=== PATIENT | male | born 1935 | race Caucasian/White ===

== ENCOUNTER 2022-01-03 13:45 | Observation (INO) ==
[2022-01-03] MEDS ORDERED: *HR* HYDROmorphone (PF) 1 MG/ML SYRINGE IVP ONE (18:07)
[2022-01-03] MEDS ORDERED: *HR* HYDROcodone/Acet 5/325 mg TABLET PO PRN (18:11)
[2022-01-03] MEDS ORDERED: Ondansetron 4 MG/2 ML VIAL IVP PRN (18:11)
[2022-01-03] MEDS ORDERED: Acetaminophen 325 MG TABLET PO PRN (18:11)
[2022-01-03] MEDS ORDERED: Naloxone 0.4 MG/ML INJ IVP PRN (18:11)
[2022-01-03] MEDS ORDERED: *HR* Dextrose 50 % in Water (Syg) 50 ML SYRINGE IVP PRN (18:14)
[2022-01-03] MEDS ORDERED: Dextrose Gel 15 GM/37.5 ML TUBE PO PRN ×2 (18:14)
[2022-01-03] MEDS ORDERED: D5% in Water 1,000 ML IVC PRN (18:14)
[2022-01-03 18:32] LABS: Hematocrit 40.4 % (37.5-50.1); Hemoglobin 13.9 g/dL (12.9-16.9); Mean Corpuscular HGB Conc 34.4 g/dL (31.6-35.5); Mean Corpuscular Hemoglobin 29.4 pg (28.0-33.3); Mean Corpuscular Volume 85.6 fL (83.0-100.0); Mean Platelet Volume 10.1 fL (9.4-12.4); Platelet Count 212 K/mcL (140-400); Red Blood Count 4.72 M/mcL (4.19-5.50); Red Cell Distribution Width 13.2 % (11.5-14.5); White Blood Count 12.1 K/mcL (4.3-11.1)
[2022-01-03 18:47] LABS: Calcium 8.7 mg/dL (8.6-10.3); Potassium 3.9 mEq/L (3.5-5.1)
[2022-01-03] MEDS: Insulin LISPRO 300 UNITS/3 ML VIAL SUBQ SCH (21:03)
[2022-01-04 04:18] LABS: Hematocrit 40.9 % (37.5-50.1); Hemoglobin 13.7 g/dL (12.9-16.9); Mean Corpuscular HGB Conc 33.5 g/dL (31.6-35.5); Mean Corpuscular Hemoglobin 28.7 pg (28.0-33.3); Mean Corpuscular Volume 85.7 fL (83.0-100.0); Mean Platelet Volume 9.7 fL (9.4-12.4); Platelet Count 219 K/mcL (140-400); Red Blood Count 4.77 M/mcL (4.19-5.50); Red Cell Distribution Width 13.2 % (11.5-14.5); White Blood Count 11.7 K/mcL (4.3-11.1)
[2022-01-04 04:35] LABS: Calcium 8.4 mg/dL (8.6-10.3); Potassium 3.9 mEq/L (3.5-5.1)
[2022-01-04] MEDS: *HR* Enoxaparin 40 MG/0.4 ML SYRINGE SQ SCH (05:23)
[2022-01-04] MEDS ORDERED: D5% in Water 1,000 ML IVC PRN (07:56)
[2022-01-04] MEDS ORDERED: Dextrose Gel 15 GM/37.5 ML TUBE PO PRN ×2 (07:56)
[2022-01-04] MEDS ORDERED: *HR* Dextrose 50 % in Water (Syg) 50 ML SYRINGE IVP PRN (07:56)
[2022-01-04] MEDS: Insulin LISPRO 300 UNITS/3 ML VIAL SUBQ SCH ×4 (08:48→21:06)
[2022-01-04] MEDS ORDERED: lisinopriL 5 MG TABLET PO SCH (09:00)
[2022-01-04] MEDS ORDERED: Ketorolac 30 MG/ML VIAL IVP ONE (12:01)
[2022-01-04] MEDS: *HR* HYDROcodone/Acet 5/325 mg TABLET PO PRN (12:18)
[2022-01-04] MEDS ORDERED: lisinopriL 10 MG TABLET PO ONE (13:32)
[2022-01-04 14:11] LABS: Estimated Average Glucose 214 mg/dl; Hemoglobin A1C 9.1 %
[2022-01-04 19:38] LABS: Bilirubin,Urine Negative (Negative); Blood,Urine Moderate (Negative); Clarity,Urine Slightly Cloudy (Clear); Glucose,Urine (UA) 500 mg/dL (Normal); Ketones,Urine 15 mg/dL (Negative); Leukocyte Esterase,Urine Small (Negative); Nitrite,Urine Negative (Negative); Protein,Urine 30 mg/dL (Neg-Trace); Specific Gravity,Urine 1.015 (1.010-1.025); Urobilinogen,Urine Normal (Normal)
[2022-01-04 19:53] LABS: Color,Urine Yellow (Yellow)
[2022-01-04 19:54] LABS: Amorphous Sediment,Urine Few per hpf (None-Few)
[2022-01-04 19:55] LABS: Bacteria,Urine Few per hpf (None-Few); Hyaline Casts,Urine Few per lpf (None Seen)
[2022-01-04] MEDS ORDERED: Insulin DETEMIR 100 UNIT/ML X5UNITS SUBQ SCH (21:00)
[2022-01-04] MEDS: Melatonin 3 MG TABLET PO PRN (21:09)
[2022-01-04] MEDS: tiZANidine 4 MG TABLET PO PRN (21:09)
[2022-01-04] MEDS: Insulin DETEMIR 100 UNIT/ML X5UNITS SUBQ SCH (21:09)
[2022-01-04] MEDS: hydrALAZINE 10 MG TABLET PO PRN (21:09)
[2022-01-05 05:03] LABS: Hematocrit 36.8 % (37.5-50.1); Hemoglobin 12.4 g/dL (12.9-16.9); Mean Corpuscular HGB Conc 33.7 g/dL (31.6-35.5); Mean Corpuscular Hemoglobin 29.2 pg (28.0-33.3); Mean Corpuscular Volume 86.8 fL (83.0-100.0); Mean Platelet Volume 10.3 fL (9.4-12.4); Platelet Count 214 K/mcL (140-400); Red Blood Count 4.24 M/mcL (4.19-5.50); Red Cell Distribution Width 13.2 % (11.5-14.5)
[2022-01-05 05:20] LABS: Albumin 3.1 g/dL (3.5-5.7); Albumin/Globulin Ratio 1.2 (1.1-2.2); Bilirubin,Total 0.5 mg/dL (0.3-1.0); Calcium 8.2 mg/dL (8.6-10.3); Globulin 2.6 g/dL (2.4-3.5); Magnesium 2.3 mg/dL (1.6-2.6); Potassium 4.1 mEq/L (3.5-5.1); Total Protein 5.7 g/dL (6.4-8.9)
[2022-01-05] MEDS: *HR* HYDROcodone/Acet 5/325 mg TABLET PO PRN ×2 (06:29→17:36)
[2022-01-05] MEDS: *HR* Enoxaparin 40 MG/0.4 ML SYRINGE SQ SCH (06:30)
[2022-01-05] MEDS: Insulin LISPRO 300 UNITS/3 ML VIAL SUBQ SCH ×4 (08:09→21:01)
[2022-01-05] MEDS: lisinopriL 10 MG TABLET PO SCH (08:09)
[2022-01-05] MEDS: Insulin DETEMIR 100 UNIT/ML X5UNITS SUBQ SCH ×2 (08:10→21:01)
[2022-01-05] MEDS ORDERED: lisinopriL 10 MG TABLET PO ONE (12:01)
[2022-01-05] MEDS: 0.9 % Sodium Chloride 1,000 ML IVC SCH (14:15)
[2022-01-05] MEDS: tiZANidine 4 MG TABLET PO PRN (21:01)
[2022-01-05] MEDS: Melatonin 3 MG TABLET PO PRN (21:01)
[2022-01-06] MEDS: 0.9 % Sodium Chloride 1,000 ML IVC SCH (01:04)
[2022-01-06] MEDS: *HR* HYDROcodone/Acet 5/325 mg TABLET PO PRN ×4 (01:51→20:54)
[2022-01-06 05:10] LABS: Hematocrit 36.4 % (37.5-50.1); Hemoglobin 11.9 g/dL (12.9-16.9); Mean Corpuscular HGB Conc 32.7 g/dL (31.6-35.5); Mean Corpuscular Hemoglobin 28.7 pg (28.0-33.3); Mean Corpuscular Volume 87.7 fL (83.0-100.0); Mean Platelet Volume 10.1 fL (9.4-12.4); Platelet Count 212 K/mcL (140-400); Red Blood Count 4.15 M/mcL (4.19-5.50); Red Cell Distribution Width 13.2 % (11.5-14.5); White Blood Count 8.4 K/mcL (4.3-11.1)
[2022-01-06 05:25] LABS: Magnesium 2.4 mg/dL (1.6-2.6); Potassium 4.3 mEq/L (3.5-5.1)
[2022-01-06] MEDS: *HR* Enoxaparin 40 MG/0.4 ML SYRINGE SQ SCH (06:04)
[2022-01-06] MEDS: lisinopriL 10 MG TABLET PO SCH (09:48)
[2022-01-06] MEDS: tiZANidine 4 MG TABLET PO PRN ×3 (09:50→20:54)
[2022-01-06] MEDS: Insulin LISPRO 300 UNITS/3 ML VIAL SUBQ SCH ×4 (11:30→19:32)
[2022-01-06] MEDS: Insulin DETEMIR 100 UNIT/ML X5UNITS SUBQ SCH ×2 (11:34→19:31)
[2022-01-06] MEDS: hydrALAZINE 10 MG TABLET PO PRN (17:09)
[2022-01-06 19:23] VITALS: BP 202/83; PULSE 69; RESP 15; TEMP 97.8; O2SAT 96
[2022-01-06] MEDS: Melatonin 3 MG TABLET PO PRN (20:54)
== END 2022-01-06 23:59 | disposition other institution (70) ==
LOC: EMEROOGRE 13:45 → INPGRE 13:45
PROVIDERS: ADMIT Family Medicine; ATTEND Family Medicine